=== PATIENT | female | born 1990 | race Caucasian/White ===

== ENCOUNTER → 2017-08-25 | Outpatient (CLI) | payer BC, OTHER ==
[2017-08-25 15:45] LABS: LUTEINIZING HORMONE 3.5 mIU/mL; PROLACTIN 10.4 NG/ML
[2017-08-25 15:46] LABS: ESTRADIOL 46.3 PG/ML
[2017-08-25 15:51] LABS: FREE T4 0.97 NG/DL (0.76-1.46)
[2017-08-31 00:06] LABS: 17 HYDROXY PROGESTERONE 31 ng/dL (.)
== END ==
LOC: M LAB 14:38
PROVIDERS: ATTEND Obstetrics & Gynecology
DX: E28.2 Polycystic ovarian syndrome (principal)

== ENCOUNTER → 2017-09-11 | Outpatient (CLI) | payer BC, OTHER | LOC: M LAB 15:10 | PROVIDERS: ATTEND Obstetrics & Gynecology | DX: E28.2 Polycystic ovarian syndrome (principal) ==

== ENCOUNTER 2017-10-30 01:02 | Emergency (ER) | payer BC, OTHER ==
[2017-10-30] MEDS: KETOROLAC 60 MG/2 ML VIAL (J1885) IM (01:52)
== END 2017-10-30 02:30 | disposition home or self-care (01) ==
LOC: M ED 01:02
DX: S30.0XXA Contusion of lower back and pelvis, initial encounter (principal); V80.010A Animal-rider injured by fall from or being thrown from horse in noncollision accident, initial encounter; Y92.89 Other specified places as the place of occurrence of the external cause; Y93.52 Activity, horseback riding; M25.552 Pain in left hip; E28.2 Polycystic ovarian syndrome
CPT/HCPCS: J1885

== ENCOUNTER → 2017-12-19 | Outpatient (CLI) | payer BC, OTHER ==
[2017-12-19 17:56] LABS: BASO # 0.1 10^3/uL (0.0-0.2); BASO % 0.7 % (0.0-1.0); EOS # 0.1 10^3/uL (0.0-0.50); EOS % 1.1 % (0.0-3.0); HEMATOCRIT 40.4 % (36.0-47.0); HEMOGLOBIN 13.4 g/dl (12.0-15.5); IMMATURE GRANULOCYTE % 0.4 % (0-3.0); LYMPH # 1.7 10^3/uL (1.5-6.5); LYMPH % 18.8 % (24.0-44.0); MEAN CORPUSCULAR HEMOGLOBIN 30.7 pg (27.0-33.0); MEAN CORPUSCULAR HGB CONC 33.2 g/dl (32.0-36.5); MEAN CORPUSCULAR VOLUME 92.4 fl (80.0-96.0); MONO # 0.6 10^3/uL (0.0-0.8); MONO % 6.5 % (0.0-5.0); NEUTROPHILS # 6.7 10^3/uL (1.8-7.7); NEUTROPHILS % 72.5 % (36.0-66.0); PLATELET COUNT, AUTOMATED 305 10^3/uL (150-450); RED BLOOD COUNT 4.37 10^6/uL (4.00-5.40); RED CELL DISTRIBUTION WIDTH 12.6 % (11.5-14.5); WHITE BLOOD COUNT 9.2 10^3/uL (4.0-10.0)
[2017-12-19 18:01] LABS: ESTIMATED AVERAGE GLUCOSE 103 MG/DL (60-110); HEMOGLOBIN A1c 5.2 %
[2017-12-22 10:47] LABS: RUBELLA IgG QUALITATIVE IMMUNE (IMMUNE)
[2017-12-22 10:50] LABS: HBsAg Prenatal NEGATIVE (NEGATIVE)
[2017-12-22 11:17] LABS: HEPATITIS C VIRUS ABY INDEX 0.1 INDEX (<0.8)
[2017-12-22 11:18] LABS: HIV 1&2 SCREEN CENTAUR NEGATIVE (NEGATIVE)
== END ==
LOC: M SMT 14:31
DX: Z34.81 Encounter for supervision of other normal pregnancy, first trimester (principal); Z3A.01 Less than 8 weeks gestation of pregnancy
CPT/HCPCS: 84443

== ENCOUNTER → 2018-01-23 | Outpatient (REF) | payer BC, OTHER ==
[2018-01-24 00:03] LABS: CHLAMYDIA DNA AMPLIFICATION NEGATIVE (NEGATIVE); GC DNA AMPLIFICATION NEGATIVE (NEGATIVE)
== END ==
LOC: M LAB REF 17:40
DX: Z34.81 Encounter for supervision of other normal pregnancy, first trimester (principal)
CPT/HCPCS: 87086

== ENCOUNTER → 2018-02-25 | Outpatient (REF) | payer OTHER | LOC: M LAB REF 13:00 | DX: Z34.82 Encounter for supervision of other normal pregnancy, second trimester (principal); Z3A.00 Weeks of gestation of pregnancy not specified ==

== ENCOUNTER 2018-03-11 17:32 | Outpatient (CLI) | payer BC, OTHER | END 2018-03-18 | LOC: M RAD 17:32 | DX: Z34.82 Encounter for supervision of other normal pregnancy, second trimester (principal) | CPT/HCPCS: 76811 ==

== ENCOUNTER → 2018-05-01 | Outpatient (CLI) | payer BC, OTHER ==
[2018-05-01 13:24] LABS: HEMOGLOBIN 11.4 g/dl (12.0-15.5); MEAN CORPUSCULAR HEMOGLOBIN 31.6 pg (27.0-33.0); MEAN CORPUSCULAR HGB CONC 33.5 g/dl (32.0-36.5); MEAN CORPUSCULAR VOLUME 94.2 fl (80.0-96.0); PLATELET COUNT, AUTOMATED 282 10^3/uL (150-450); RED BLOOD COUNT 3.61 10^6/uL (4.00-5.40); RED CELL DISTRIBUTION WIDTH 13.4 % (11.5-14.5); WHITE BLOOD COUNT 8.5 10^3/uL (4.0-10.0)
[2018-05-01 13:50] LABS: GLUCOSE CHALLENGE TEST 1 HOUR 105 MG/DL (LESS THAN 140)
== END ==
LOC: M SMT 10:46
DX: Z34.82 Encounter for supervision of other normal pregnancy, second trimester (principal); Z36.89 Encounter for other specified antenatal screening
CPT/HCPCS: 82950

== ENCOUNTER 2018-06-20 10:57 | Inpatient (IN) | payer BC, OTHER ==
[2018-06-20] MEDS: FENTANYL/ROPIVACAINE/NACL BAG 200 ML EPIDURAL (01:30)
[2018-06-20] MEDS: AMPICILLIN SOD 2 GM in D5W MINI-BAG PLUS 100 ML IV ×2 (13:10→18:28)
[2018-06-20] MEDS: AZITHROMYCIN 250 MG TAB PO (13:10)
[2018-06-20] MEDS: BETAMETHASONE SOLUSPAN 6MG/ML INJ 5ML (J0702) IM (13:11)
[2018-06-20 13:15] LABS: HEMATOCRIT 35.1 % (36.0-47.0); MEAN CORPUSCULAR HEMOGLOBIN 31.6 pg (27.0-33.0); MEAN CORPUSCULAR HGB CONC 34.2 g/dl (32.0-36.5); MEAN CORPUSCULAR VOLUME 92.4 fl (80.0-96.0); PLATELET COUNT, AUTOMATED 288 10^3/uL (150-450); RED CELL DISTRIBUTION WIDTH 12.7 % (11.5-14.5)
[2018-06-20] MEDS: LR 1,000 ML IV ×2 (14:14→22:15)
[2018-06-20] MEDS ORDERED: PILL CRUSHER/CUTTER 1 EACH XX (20:15)
[2018-06-20] MEDS: FAMOTIDINE 20 MG TAB PO (20:21)
[2018-06-21] MEDS: AMPICILLIN SOD 2 GM in D5W MINI-BAG PLUS 100 ML IV (01:02)
[2018-06-21] MEDS ORDERED: FENTANYL 2MCG/ML ROPIVACAINE 0.2% IN 0.9% NACL 200ML IVBAG As Ordered (01:09)
[2018-06-21] MEDS ORDERED: ePHEDrine SULFATE 25 MG/5 ML(5MG/ML) SYRINGE As Ordered (01:56)
[2018-06-21] MEDS ORDERED: ePHEDrine SULFATE 25 MG/5 ML(5MG/ML) SYRINGE IV ×2 (02:00→05:15)
[2018-06-21] MEDS: FENTANYL/ROPIVACAINE/NACL BAG 200 ML EPIDURAL (02:00)
[2018-06-21] MEDS ORDERED: EPIDURAL/PCA KEYS XX ×2 (02:00→05:15)
[2018-06-21] MEDS ORDERED: NALOXONE INJ 0.4 MG/1 ML VIAL (J2310) IV ×2 (02:00→05:15)
[2018-06-21] MEDS ORDERED: EPIDURAL COMMENT XX ×2 (02:00→05:15)
[2018-06-21] MEDS ORDERED: LACTATED RINGER'S 1000 ML IV ×2 (02:00→05:15)
[2018-06-21] MEDS ORDERED: ONDANSETRON 4MG/2ML VIAL (J2405) IV ×4 (02:00→09:00)
[2018-06-21] MEDS ORDERED: REFRIGERATOR IV KEYS XX ×2 (02:00→05:15)
[2018-06-21] MEDS ORDERED: diphenhydrAMINE INJ 50MG/ML VIAL (J1200) IV ×2 (02:00→05:15)
[2018-06-21] MEDS ORDERED: OXYTOCIN DRIP 30 UNITS in APPROPRIATE DILUENT 1 EA IV ×2 (03:30→03:45)
[2018-06-21] MEDS ORDERED: DOCUSATE SODIUM 100 MG CAP PO ×2 (03:45→09:00)
[2018-06-21] MEDS ORDERED: IBUPROFEN 800 MG TAB PO (03:45)
[2018-06-21] MEDS ORDERED: DIBUCAINE 1% OINTMENT 30GM TOP (03:45)
[2018-06-21] MEDS ORDERED: ACETAMINOPHEN 500 MG TAB PO (03:45)
[2018-06-21] MEDS ORDERED: METHYLERGONOVINE MALEATE 0.2 MG TAB PO ×2 (03:45→09:00)
[2018-06-21] MEDS ORDERED: MEASLES,MUMPS,RUBELLA VACCINE INJ (MMR-II) (90707) SC ×2 (03:45→09:00)
[2018-06-21] MEDS ORDERED: LIDOCAINE 1% MDV 20ML VIAL INFIL (03:45)
[2018-06-21] MEDS ORDERED: RHOGAM 300 MCG (1500 IU) INJ (J2790) IM ×2 (03:45→09:00)
[2018-06-21 07:03] LABS: CORD GAS ABE V -5.4; CORD GAS HCO3 V 19.9 MEQ/L; CORD GAS O2 SAT V 60.3 %; CORD GAS PCO2 V 39.3 mmHg; CORD GAS PH V 7.323 UNITS; CORD GAS PO2 V 24.2 mmHg; CORD GAS TCO2 V 21.1 MEQ/L
[2018-06-21 07:05] LABS: CORD GAS ABE A -5.6; CORD GAS HCO3 A 23.3 MEQ/L; CORD GAS O2 SAT A 26.2 %; CORD GAS PCO2 A 58.5 mmHg; CORD GAS PH A 7.218 UNITS; CORD GAS PO2 A 14.8 mmHg; CORD GAS SBC A 18.1 MEQ/L; CORD GAS TCO2 A 25.1 MEQ/L
[2018-06-21] MEDS ORDERED: PRENATAL VITAMINS CHEWABLE TABLET PO (09:00)
[2018-06-21] MEDS: IBUPROFEN 800 MG TAB PO (09:40)
[2018-06-21] MEDS: PRENATAL VITAMINS CHEWABLE TABLET PO (09:40)
[2018-06-21] MEDS: OXYTOCIN DRIP 30 UNITS in APPROPRIATE DILUENT 1 EA IV (09:45)
[2018-06-21] MEDS: DIBUCAINE 1% OINTMENT 30GM TOP (15:01)
[2018-06-21] MEDS: ACETAMINOPHEN 500 MG TAB PO (15:01)
[2018-06-22] MEDS: IBUPROFEN 800 MG TAB PO ×3 (06:20→21:50)
[2018-06-22] MEDS: PRENATAL VITAMINS CHEWABLE TABLET PO (07:46)
[2018-06-22] MEDS: ACETAMINOPHEN 500 MG TAB PO (07:47)
[2018-06-23] MEDS: ACETAMINOPHEN 500 MG TAB PO (00:33)
[2018-06-23] MEDS: PRENATAL VITAMINS CHEWABLE TABLET PO (09:22)
[2018-06-23] MEDS: INFLUENZA QUADRIVALENT PF VACCINE 0.5ML SYRINGE (90686) IM (11:00)
== END 2018-06-23 11:48 | disposition home or self-care (01) | DRG 560 ==
LOC: M LDO 10:57 → M OBS 06-21 10:58 → M LDI 12:00
PROVIDERS: Specialist
PROC: 10E0XZZ Delivery of Products of Conception, External Approach (ICD-10-PCS; principal; 2018-06-21)
PROC: 0HQ9XZZ Repair Perineum Skin, External Approach (ICD-10-PCS; 2018-06-21)
DX: O42.013 Preterm premature rupture of membranes, onset of labor within 24 hours of rupture, third trimester (principal); O60.14X0 Preterm labor third trimester with preterm delivery third trimester, not applicable or unspecified; Z3A.33 33 weeks gestation of pregnancy; Z37.0 Single live birth; O70.0 First degree perineal laceration during delivery

== ENCOUNTER → 2019-02-12 | Outpatient (REF) | payer OTHER ==
[~2019-02-12] MED LIST: IBUP-1114 PO; KETO10TAB PO; MAPA500T2 PO; PRENTAB9 PO
[2019-02-12 21:48] LABS: APPEARANCE, URINE CLOUDY (CLEAR); BACTERIA, URINE AUTO 1+ (NEGATIVE); BILIRUBIN, URINE AUTO NEGATIVE (NEGATIVE); BLOOD, URINE BLOOD 3+ (NEGATIVE); COLOR, URINE YELLOW (YELLOW); GLUCOSE, URINE (UA) AUTO NEGATIVE (NEGATIVE); KETONE, URINE AUTO NEGATIVE (NEGATIVE); LEUKOCYTE ESTERASE, URINE AUTO 2+ (NEGATIVE); MUCUS, URINE SMALL (NEGATIVE); NITRITE, URINE AUTO NEGATIVE (NEGATIVE); PROTEIN, URINE AUTO 2+ mg/dL (NEGATIVE); RBC, URINE AUTO TNTC /HPF (0-3); SPECIFIC GRAVITY URINE AUTO 1.026 (1.002-1.035); SQUAMOUS EPITHELIAL CELL UR AU 1 /HPF (0-6); UROBILINOGEN, URINE AUTO 0.2 mg/dL (0.0-2.0); WBC, URINE AUTO TNTC /HPF (0-3)
== END ==
LOC: M LAB REF 13:55
PROVIDERS: ATTEND Physician Assistant
DX: N39.0 Urinary tract infection, site not specified (principal)

== ENCOUNTER 2019-04-11 03:40 | Emergency (ER) | payer BC, OTHER ==
[~2019-04-11] VITALS: Ht 165.1 cm; Wt 62.3 kg
[2019-04-11 03:40] VITALS: BP 114/76
[2019-04-11 05:21] LABS: BASO # 0.1 10^3/uL (0.0-0.2); BASO % 0.5 % (0.0-1.0); EOS # 0.1 10^3/uL (0.0-0.50); EOS % 0.9 % (0.0-3.0); HEMOGLOBIN 14.7 g/dl (12.0-15.5); LYMPH # 2.5 10^3/uL (1.5-6.5); LYMPH % 25.3 % (24.0-44.0); MEAN CORPUSCULAR HEMOGLOBIN 31.2 pg (27.0-33.0); MEAN CORPUSCULAR HGB CONC 32.7 g/dl (32.0-36.5); MEAN CORPUSCULAR VOLUME 95.5 fl (80.0-96.0); MONO # 0.6 10^3/uL (0.0-0.8); MONO % 6.3 % (0.0-5.0); NEUTROPHILS # 6.6 10^3/uL (1.8-7.7); NEUTROPHILS % 66.7 % (36.0-66.0); PLATELET COUNT, AUTOMATED 259 10^3/uL (150-450); RED BLOOD COUNT 4.71 10^6/uL (4.00-5.40); WHITE BLOOD COUNT 9.8 10^3/uL (4.0-10.0)
[2019-04-11 05:31] LABS: URINE PREG TEST NEGATIVE (NEGATIVE)
[2019-04-11] MEDS ORDERED: NS 1,000 ML IV ONE (05:45)
[2019-04-11] MEDS ORDERED: cefTRIAXone SOD 2 GM in D5W MINI-BAG PLUS 50 ML IV ONE (05:45)
[2019-04-11 05:49] LABS: ALBUMIN 4.2 GM/DL (3.2-5.2); ALT/SGPT 19 U/L (12-78); BILIRUBIN,DIRECT 0.1 MG/DL (0.0-0.2); BILIRUBIN,TOTAL 0.4 MG/DL (0.2-1.0); BLOOD UREA NITROGEN 17 MG/DL (7-18); CALCIUM LEVEL 9.1 MG/DL (8.5-10.1); CARBON DIOXIDE LEVEL 30 MEQ/L (21-32); CHLORIDE LEVEL 103 MEQ/L (98-107); CREATININE FOR GFR 0.86 MG/DL (0.55-1.30); GLOMERULAR FILTRATION RATE > 60.0 (>60); GLUCOSE, FASTING 100 MG/DL (70-100); LIPASE 113 U/L (73-393); POTASSIUM SERUM 4.1 MEQ/L (3.5-5.1); SODIUM LEVEL 141 MEQ/L (136-145)
[2019-04-11] MEDS ORDERED: KETOROLAC 30 MG/ML VIAL (J1885) IV ONE (06:00)
[2019-04-11] MEDS ORDERED: BACT800T5 PO (06:39)
[2019-04-11] MEDS ORDERED: NORCO 5/325MG TABLET (BULK FOR ED) PO ONE (06:45)
--- NOTE | 2019-04-11 07:19 | REPVR ---
EXAM: CT Abdomen and Pelvis Without Contrast EXAM DATE/TIME: 04/11/2019 5:49 AM CLINICAL HISTORY: 29 years old, female; Abdominal pain; Flank; Left; Additional info: Flank pain TECHNIQUE: Imaging protocol: Axial computed tomography images of the abdomen and pelvis without contrast. Coronal and sagittal reformatted images were created and reviewed. Radiation optimization: All CT scans at this facility use at least one of these dose optimization techniques: automated exposure control; mA and/or kV adjustment per patient size (includes targeted exams where dose is matched to clinical indication); or iterative reconstruction. COMPARISON: US OBS SINGEL GEST 03/18/2018 8:40 AM FINDINGS: Lungs: There is a peripheral 5 mm nodule in the right lower lobe. If patient does not have known cancer, follow up should be based on clinical information because of the low risk of cancer in this age group. (Alana et al., Fleischner Society, 2017) Liver: There are no focal liver lesions present. Gallbladder and bile ducts: The gallbladder is normal with no stones or biliary ductal dilation. Pancreas: There is a low-attenuation rounded structure measuring 1.8 cm in the region of the head of the pancreas and second portion of the duodenum. This may be a duodenal diverticulum or any cystic lesion in the pancreas. The remainder of the pancreas appears unremarkable. Spleen: The spleen is normal. Adrenals: The adrenal glands are normal. Kidneys and ureters: There is no hydronephrosis. The nondilated distal ureters are difficult to distinguish in the pelvis. There are multiple calcifications in the pelvis which are probably phleboliths. A small distal ureteral stone is difficult to exclude but is unlikely given the lack of ureteral dilation. Stomach and bowel: There is no dilation or thickening of the colon. The small bowel appears unremarkable. A moderate to large stool burden is noted. Appendix: A normal appendix is identified. Intraperitoneal space: There is no evidence of free intraperitoneal or pelvic fluid. There is no free intraperitoneal air. Vasculature: The aorta is normal. No aneurysm. Lymph nodes: There is no gross lymphadenopathy. Bladder: The bladder is mostly collapsed. No bladder stones are identified. Reproductive: There is a round lesion with fat density on the right side of pelvis, measuring 1.9 cm, and consistent with an ovarian dermoid. The uterus is unremarkable. Bones/joints: No suspicious osseous lesions. No acute fractures or dislocations. Soft tissues: Unremarkable. Other findings: IMPRESSION: 1. No nephrolithiasis or hydronephrosis. A small distal ureteral stone is difficult to exclude but is unlikely given the lack of ureteral dilation. 2. Low-attenuation structure in the region of the duodenum and head of the pancreas, which may be a duodenal diverticulum but could be a cystic lesion in the pancreas. Followup with contrast-enhanced CT scan or with MRI may help to distinguish between these. 3. Small right ovarian dermoid. Electronically signed by: Johana Noland On 04/11/2019 07:19:02 AM
--- NOTE | 2019-04-13 12:33 | ED PDOC ---
Post-Departure Follow-Up certified letter sent to pt re formal read of ct abd/p. see report. needs fu. fi nd out pcp is. if none [facility], give number and fax report there Jessica Wayne MD Apr 13, 2019 12:32
== END 2019-04-11 06:56 | disposition home or self-care (01) ==
LOC: M ED 03:40
DX: N12 Tubulo-interstitial nephritis, not specified as acute or chronic (principal); R11.0 Nausea
CPT/HCPCS: 74176; 80048; 80076; 81001; 83690; 84703; 85025; 87040; 87088; 87186; 96365; 96375; 99284; J0696; J1885

== ENCOUNTER 2019-04-15 20:00 | Emergency (ER) | payer BC, OTHER ==
[~2019-04-15] VITALS: Ht 165.1 cm; Wt 61.4 kg
[~2019-04-15 20:00] MED LIST changes: +BACT800T5 PO
[2019-04-15 20:35] LABS: BASO % 0.2 % (0.0-1.0); EOS # 0.2 10^3/uL (0.0-0.50); EOS % 2.9 % (0.0-3.0); HEMATOCRIT 42.2 % (36.0-47.0); HEMOGLOBIN 13.9 g/dl (12.0-15.5); LYMPH % 3.1 % (24.0-44.0); MEAN CORPUSCULAR HEMOGLOBIN 31.1 pg (27.0-33.0); MEAN CORPUSCULAR HGB CONC 32.9 g/dl (32.0-36.5); MEAN CORPUSCULAR VOLUME 94.4 fl (80.0-96.0); MONO # 0.3 10^3/uL (0.0-0.8); MONO % 5.5 % (0.0-5.0); NEUTROPHILS # 5.1 10^3/uL (1.8-7.7); PLATELET COUNT, AUTOMATED 224 10^3/uL (150-450); RED BLOOD COUNT 4.47 10^6/uL (4.00-5.40); WHITE BLOOD COUNT 5.8 10^3/uL (4.0-10.0)
[2019-04-15 21:05] LABS: LYMPH # 0.2 10^3/uL (1.5-6.5)
[2019-04-15 21:06] LABS: HCG, SERUM QUALITATIVE NEGATIVE (NEGATIVE)
[2019-04-15 21:07] LABS: ALBUMIN 4.1 GM/DL (3.2-5.2); ALT/SGPT 17 U/L (12-78); BILIRUBIN,TOTAL 0.2 MG/DL (0.2-1.0); BLOOD UREA NITROGEN 12 MG/DL (7-18); CARBON DIOXIDE LEVEL 29 MEQ/L (21-32); CHLORIDE LEVEL 102 MEQ/L (98-107); CREATININE FOR GFR 1.15 MG/DL (0.55-1.30); GLOMERULAR FILTRATION RATE 59.8 (>60); GLUCOSE, FASTING 111 MG/DL (70-100); POTASSIUM SERUM 4.3 MEQ/L (3.5-5.1); SODIUM LEVEL 137 MEQ/L (136-145); TOTAL PROTEIN 7.3 GM/DL (6.4-8.2)
[2019-04-15] MEDS ORDERED: ACETAMINOPHEN 325 MG TAB PO ONE (22:30)
[2019-04-15] MEDS ORDERED: ISOVUE-370 76% 100ML VIAL (Q9967) As Ordered ONE (22:58)
[2019-04-15] MEDS ORDERED: NS 1,000 ML IV ONE (23:00)
--- NOTE | 2019-04-15 23:46 | REPVR ---
EXAM: CT Abdomen and Pelvis With Contrast EXAM DATE/TIME: 04/15/2019 10:46 PM CLINICAL HISTORY: 29 years old, female; Abdominal pain; Flank; Other: Bilat; Additional info: B/l cvat, febrile TECHNIQUE: Imaging protocol: Axial computed tomography images of the abdomen and pelvis with intravenous contrast. Coronal and sagittal reformatted images were created and reviewed. Radiation optimization: All CT scans at this facility use at least one of these dose optimization techniques: automated exposure control; mA and/or kV adjustment per patient size (includes targeted exams where dose is matched to clinical indication); or iterative reconstruction. Contrast material: ISO;Contrast volume: 100 ml;Contrast route: AC; COMPARISON: CT ABD PELVIS W/O CONTRAST 04/11/2019 5:48 AM FINDINGS: Lungs: 6.5 mm noncalcified subpleural nodule right lower lobe and a 4.3 mm subpleural noncalcified nodule left lower lobe. These likely postinflammatory and have not changed in comparison to prior recent study of 04/11/2019. Liver: 8 mm cyst right lobe of the liver. Gallbladder and bile ducts: Normal. No calcified stones. No ductal dilation. Pancreas: Septated cyst in the pancreatic uncinate process measures 2.8 x 2.7 x 2 cm. 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 Spleen: Normal. No splenomegaly. Adrenals: Normal. No mass. Kidneys and ureters: Normal. No hydronephrosis. Stomach and bowel: There is increased feces throughout the colon consistent with constipation. Appendix: No evidence of appendicitis. Intraperitoneal space: Normal. No free air. No significant fluid collection. Vasculature: Normal. No abdominal aortic aneurysm. Lymph nodes: Normal. No enlarged lymph nodes. Bladder: Unremarkable as visualized. Reproductive: Low attenuation mass in the right adnexal region measures 0.9 x 1.8 cm consistent with a dermoid of right ovary. Bones/joints: No acute fracture. No dislocation. Soft tissues: Unremarkable. IMPRESSION: 1. Septated cyst in the pancreatic uncinate process measures 2.8 x 2.7 x 2 cm. 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 Other etiologies including serous cystadenoma and postinflammatory cysts to be considered as well. Surgical consultation and biopsy may be necessary. 2. Low attenuation mass in the right adnexal region measures 0.9 x 1.8 cm consistent with a dermoid of right ovary. 3. There is increased feces throughout the colon consistent with constipation. Electronically signed by: Lm Peralta On 04/15/2019 23:46:19 PM
[2019-04-16 01:27] LABS: AMYLASE 56 U/L (25-115); LIPASE 98 U/L (73-393)
[2019-04-16 01:44] VITALS: BP 108/54
[2019-04-16] MEDS ORDERED: NORCO 5/325MG TABLET (BULK FOR ED) PO ONE (02:00)
[2019-04-16 02:38] LABS: CHLAMYDIA DNA AMPLIFICATION NEGATIVE (NEGATIVE); GC DNA AMPLIFICATION NEGATIVE (NEGATIVE)
--- NOTE | 2019-04-16 06:25 | ECGEPIP ---
[facility] - ED Test Date: 2019-04-15 Pat Name: LEN LEGGETT Department: Room: - Gender: Female Senior Programmer: : 1990 Requested By: LIVE Noe PA-C Order Number: [id number] Reading MD: Sixto Lund Measurements Intervals [place] Rate: 84 P: 6 AR: 122 QRS: 40 QRSD: 85 T: 42 QT: 346 QTc: 411 Interpretive Statements SINUS RHYTHM INCOMPLETE RIGHT BUNDLE BRANCH BLOCK NO PRIORS FOR COMPARISON Electronically Signed on 04-16-2019 6:24:57 EDT by Sixto Lund
--- NOTE | 2019-04-16 06:59 | REP ---
Clinical: Chest and abdominal pain . Comparison: None . Technique: PA and lateral. Findings: The mediastinum and cardiac silhouette are normal. The lung flower are clear and without acute consolidation, effusion, or pneumothorax. The skeletal structures are intact and normal. Impression: 1. No acute cardiopulmonary process. Electronically Signed by Jlail Bills MD 04/16/2019 06:51 A
--- NOTE | 2019-04-16 19:59 | ED PDOC ---
Post-Departure Follow-Up dr vargas, [facility] faxed formal repot of ct abd/p for fu Jessica Wayne MD Apr 16, 2019 19:59
[2019-04-18 00:06] LABS: Lyme Disease IgG/IgM Antibodie <0.91 ISR (0.00-0.90); Lyme Disease IgM Ab Quantitati <0.80 index (0.00-0.79)
== END 2019-04-16 01:59 | disposition home or self-care (01) ==
LOC: M ED 20:00
DX: I45.19 Other right bundle-branch block (principal); K59.00 Constipation, unspecified; N83.299 Other ovarian cyst, unspecified side; N39.0 Urinary tract infection, site not specified; R91.8 Other nonspecific abnormal finding of lung field; K86.2 Cyst of pancreas; D27.9 Benign neoplasm of unspecified ovary; Z87.442 Personal history of urinary calculi; Z87.448 Personal history of other diseases of urinary system; F41.9 Anxiety disorder, unspecified; F32.9 Major depressive disorder, single episode, unspecified
CPT/HCPCS: 71046; 74177; 80053; 81001; 82150; 83605; 83690; 84703; 85025; 86617; 87040; 87086; 87210; 87491; 87591; 93005; 96360; 96361; 99284; Q9967

== ENCOUNTER → 2019-04-23 | Outpatient (CLI) | payer BC, OTHER ==
--- NOTE | 2019-04-23 17:03 | REP ---
MRI abdomen and pancreas without and with IV contrast: History: Cyst of the pancreas. Comparison CT study April 15, 2019 showed a cystic lesion in the pancreatic head. MRI technique: Axial and coronal imaging planes are utilized. T1 and T2-weighted sequences include spin-echo, fast spin echo, diffusion, and dynamically acquired sequential post contrast images. Contrast enhancement dose is 6 mL of intravenous ProHance, half-dose protocol, EGFR 59 mL per minute. MRI findings: No hepatic or splenic lesion is seen. The adrenal glands are normal bilaterally. No filling defect is seen on T2-weighted scans within the gallbladder. Kidneys appear morphologically intact. A lobulated septated cystic lesion is seen in the pancreatic head extending into the uncinate lobe. This measures 2.7 x 1.9 x 1.9 cm in greatest diameter. It does not show restricted diffusion. On contrast enhanced study, there is no observable contrast enhancement within this cystic lesion. The lesion does not appear to communicate with the pancreatic duct which is not dilated. No biliary ductal dilation is observed. Review of the CT study shows multiple aortocaval and periaortic lymph nodes which are individually normal in size but somewhat more numerous than is usually seen in the retroperitoneum. These are not well visualized by MRI study. Impression: 2.7 centimeter macrolobulated cystic lesion in the head of the pancreas. A cystic neoplasm is suspected. Possibilities include intraductal papillary neoplasm (IPMN), mucinous cystic neoplasm (cystadenoma versus cystadenocarcinoma), and serous cystadenoma. Further characterization may be achieved via transgastric endoscopic ultrasound possibly with aspiration. Electronically Signed by Teofilo Freemna MD 04/23/2019 05:09 P
== END ==
LOC: M PLARAD 14:35
PROVIDERS: ATTEND Surgery
DX: K86.2 Cyst of pancreas (principal)

== ENCOUNTER → 2019-05-21 | Outpatient (CLI) | payer BC, OTHER ==
--- NOTE | 2019-05-21 11:03 | REP ---
CT of the chest without contrast Indication: Other nonspecific abnormal finding of lung field. Comparison: Two-view chest of 04/15/2019. Technique: Axial CT of the chest was performed without contrast. Coronal and sagittal reformatted images, lung reformatted axial images and coronal MIP images were provided. Findings: The thyroid is normal in appearance. Within the limitation of a noncontrast enhanced examination, there is no axillary or mediastinal lymphadenopathy. The upper airway is patent. The central airways are patent. There is no suspicious nodule or pulmonary consolidation. There is triangular pleural-based nodularity within both lower lobes dependently, likely representing atelectasis (image 72 and 74). There is one mm pleural-based nodularity within the left lung posteriorly on image 49 which is nonspecific. The heart is normal in size. No pericardial effusion. No abnormality within the imaged portion of the upper abdomen. Impression: Bibasilar nodularity, likely atelectasis. No suspicious finding within the chest. Electronically Signed by Orion Brownlee MD 05/21/2019 10:55 A
== END ==
LOC: M RAD 10:29
PROVIDERS: ATTEND Internal Medicine Pulmonary Disease
DX: R91.8 Other nonspecific abnormal finding of lung field (principal)

== ENCOUNTER → 2019-06-04 | Outpatient (CLI) | payer BC, OTHER ==
[2019-06-04 14:42] LABS: ALBUMIN 3.9 GM/DL (3.2-5.2); BILIRUBIN,DIRECT 0.1 MG/DL (0.0-0.2); BILIRUBIN,TOTAL 0.5 MG/DL (0.2-1.0); TOTAL PROTEIN 6.8 GM/DL (6.4-8.2)
[2019-06-04 15:20] LABS: CA19-9 TUMOR MARKER,CARBOHYDRA 34.7 U/ML (<35.0)
== END ==
LOC: M LAB 13:50
PROVIDERS: ATTEND Surgery
DX: K86.2 Cyst of pancreas (principal)

== ENCOUNTER → 2019-06-04 | Outpatient (CLI) | payer BC, OTHER ==
[2019-06-04 14:49] LABS: FREE T4 0.9 NG/DL (0.76-1.46); THYROID STIMULATING HORMONE 1.31 uIU/ML (0.358-3.740)
[2019-06-04 14:50] LABS: PROGESTERONE 7.97 NG/ML
[2019-06-04 14:51] LABS: LUTEINIZING HORMONE 5.9 mIU/mL; PROLACTIN 11.1 NG/ML
== END ==
LOC: M LAB 13:48
PROVIDERS: ATTEND Specialist
DX: N91.1 Secondary amenorrhea (principal)

== ENCOUNTER → 2020-01-26 | Outpatient (REF) | payer OTHER ==
[2020-01-26 16:58] LABS: APPEARANCE, URINE HAZY (CLEAR); BACTERIA, URINE AUTO 2+ (NEGATIVE); BILIRUBIN, URINE AUTO NEGATIVE (NEGATIVE); BLOOD, URINE BLOOD 1+ (NEGATIVE); COLOR, URINE YELLOW (YELLOW); GLUCOSE, URINE (UA) AUTO NEGATIVE (NEGATIVE); KETONE, URINE AUTO TRACE mg/dL (NEGATIVE); LEUKOCYTE ESTERASE, URINE AUTO 1+ (NEGATIVE); MUCUS, URINE SMALL (NEGATIVE); NITRITE, URINE AUTO POSITIVE (NEGATIVE); PROTEIN, URINE AUTO NEGATIVE (NEGATIVE); RBC, URINE AUTO 6 /HPF (0-3); SPECIFIC GRAVITY URINE AUTO 1.025 (1.002-1.035); SQUAMOUS EPITHELIAL CELL UR AU 1 /HPF (0-6); TRANSITIONAL EPITHELIAL AUTO <1 /HPF; UROBILINOGEN, URINE AUTO 0.2 mg/dL (0.0-2.0); WBC, URINE AUTO 9 /HPF (0-3)
== END ==
LOC: M LAB REF 16:01
PROVIDERS: ATTEND Physician Assistant
DX: N39.0 Urinary tract infection, site not specified (principal)

== ENCOUNTER → 2020-01-26 | Outpatient (CLI) | payer BC, OTHER ==
[2020-01-28 00:06] LABS: Lyme Disease IgG/IgM Antibodie <0.91 ISR (0.00-0.90); Lyme Disease IgM Ab Quantitati <0.80 index (0.00-0.79)
== END ==
LOC: M LAB 13:06
PROVIDERS: ATTEND Physician Assistant Medical
DX: M25.512 Pain in left shoulder (principal)

== ENCOUNTER 2020-08-07 20:34 | Emergency (ER) | payer BC, OTHER ==
[~2020-08-07] VITALS: Ht 167.6 cm; Wt 69.6 kg
[2020-08-07 22:19] VITALS: BP 114/80
[2020-08-07] MEDS ORDERED: CIPR-249 PO (22:19)
[2020-08-07] MEDS ORDERED: CIPROFLOXACIN 500MG TABLET PO ONE (22:30)
[2020-08-07 22:57] LABS: CHLAMYDIA DNA AMPLIFICATION NEGATIVE (NEGATIVE); GC DNA AMPLIFICATION NEGATIVE (NEGATIVE)
== END 2020-08-07 22:52 | disposition home or self-care (01) ==
LOC: M ED 20:34
DX: N30.00 Acute cystitis without hematuria (principal); E28.2 Polycystic ovarian syndrome

== ENCOUNTER → 2020-09-11 | Outpatient (CLI) | payer SELFPAY ==
[~2020-09-11] MED LIST changes: +CIPR-249 PO
== END ==
LOC: M LABSMTC 13:18
PROVIDERS: ATTEND Pediatrics
DX: Z20.828 Contact with and (suspected) exposure to other viral communicable diseases (principal)